=== PATIENT | female | born 1940 | race Caucasian/White ===

== ENCOUNTER 2018-11-09 12:36 | Observation (INO) ==
[2018-11-09] MEDS ORDERED: Nitroglycerin 0.4 MG TAB.SUBL SL PRN (12:43)
[2018-11-09 13:13] LABS: Basophils # 0.1 K/mcL (0.0-0.2); Basophils % 0.7 %; Eosinophils # 0.2 K/mcL (0.0-0.6); Eosinophils % 2.6 %; Hematocrit 37.9 % (35.3-44.9); Immature Granulocytes % 0.4 % (0-4); Lymphocytes # 2.1 K/mcL (0.6-4.6); Lymphocytes % 22.6 %; Mean Corpuscular HGB Conc 31.7 g/dL (31.6-35.5); Mean Corpuscular Hemoglobin 27.8 pg (28.0-33.3); Mean Corpuscular Volume 87.9 fL (83.0-100.0); Mean Platelet Volume 12.8 fL (9.4-12.4); Monocytes # 0.7 K/mcL (0.0-1.3); Monocytes % 7.2 %; Platelet Count 184 K/mcL (140-400); Red Blood Count 4.31 M/mcL (3.82-4.97); Segmented Neutrophils % 66.5 %
[2018-11-09 13:22] LABS: INR 1.1; Prothrombin Time 12.8 Seconds (9.4-12.1)
[2018-11-09 13:25] LABS: Activated Partial Thrombo Time 27.6 Seconds (26.0-36.0)
[2018-11-09 13:28] LABS: BUN/Creatinine Ratio 29 (6-26); Blood Urea Nitrogen 21 mg/dL (8-23); Calcium 9.7 mg/dL (8.6-10.3); Carbon Dioxide 26 mEq/L (23-29); Chloride 107 mEq/L (98-107); Glucose 132 mg/dL (70-105); Osmolality,Calculated 293 (280-300); Potassium 3.9 mEq/L (3.5-5.1); Sodium 139 mEq/L (136-145); Troponin I < 0.03 ng/mL (< 0.04); eGFR For Non-African Americans > 60 (> 60)
--- NOTE | 2018-11-09 14:28 | Emergency Department Note ---
Disposition Clinical Impression: Chest pain Qualifiers: Chest pain type: unspecified Qualified Code(s): R07.9 - Chest pain, unspecified Disposition: Admitted As Inpatient Condition: Good Referrals: Cathy Peralta CNP [Primary Care Provider] - Time of Disposition: 14:28 General Adult HPI - General Chief complaint: ED Chest Pain Stated complaint: chest pain Time Seen by Provider: 11/09/18 12:37 Source: EMS Limitations: no limitations - History of Present Illness Pain Scale: 0 - Related Data Allergies Allergy/AdvReac Type Severity Reaction Status Date / Time aspirin Allergy Itching Verified 05/11/18 13:08 azithromycin Allergy Rash Verified 05/11/18 13:06 pregabalin [From Lyrica] Allergy Hallucinati Verified 05/11/18 13:08 ng Past Medical History - Past Medical History Medical history: Reports: arthritis, CHF, coronary artery disease, diabetes, hypertension, myocardial infarction Psychiatric history: Reports: no psych history - Social History Smoking Status: Never smoker Smokeless Tobacco Status: No Alcohol use: Reports: none Drug use: Reports: none Physical Exam - General Limitations: no limitations General appearance: alert, in no apparent distress Course Vital Signs Temperature 98.5 F 11/09/18 12:38 Pulse Rate 78 11/09/18 12:38 Respiratory Rate 16 11/09/18 12:38 Blood Pressure 162/74 11/09/18 12:38 O2 Sat by Pulse Oximetry 99 11/09/18 12:38 Temperature 98.5 F 11/09/18 12:38 Pulse Rate 78 11/09/18 13:00 Respiratory Rate 16 11/09/18 12:38 Blood Pressure 144/66 11/09/18 13:00 O2 Sat by Pulse Oximetry 96 11/09/18 13:00 Oxygen Delivery Oxygen Delivery Room Air Medical Decision Making - Lab Data Result diagrams: 11/09/18 12:58 11/09/18 12:58 Lab Results 11/09/18 11/09/18 11/09/18 Range/Units 12:58 12:58 12:58 WBC 9.1 (4.3-11.1) K/mcL RBC 4.31 (3.82-4.97) M/mcL Hgb 12.0 (11.5-15.4) g/dL Hct 37.9 (35.3-44.9) % MCV 87.9 (83.0-100.0) fL MCH 27.8 L (28.0-33.3) pg MCHC 31.7 (31.6-35.5) g/dL RDW 14.0 (11.5-14.5) % Plt Count 184 (140-400) K/mcL MPV 12.8 H (9.4-12.4) fL Immature Gran % 0.4 (0-4) % Seg Neutrophils % 66.5 % Lymphocytes % 22.6 % Monocytes % 7.2 % Eosinophils % 2.6 % Basophils % 0.7 % Neutrophils # 6.0 (1.6-8.9) K/mcL Lymphocytes # 2.1 (0.6-4.6) K/mcL Monocytes # 0.7 (0.0-1.3) K/mcL Eosinophils # 0.2 (0.0-0.6) K/mcL Basophils # 0.1 (0.0-0.2) K/mcL PT 12.8 H (9.4-12.1) Seconds INR 1.1 APTT 27.6 (26.0-36.0) Seconds Sodium 139 (136-145) mEq/L Potassium 3.9 (3.5-5.1) mEq/L Chloride 107 (98-107) mEq/L Carbon Dioxide 26 (23-29) mEq/L BUN 21 (8-23) mg/dL Creatinine 0.73 (0.60-1.20) mg/dL Est GFR ( Amer) > 60 (> 60) Est GFR (Non-Af Amer) > 60 (> 60) BUN/Creatinine Ratio 29 H (6-26) Glucose 132 H (70-105) mg/dL Calculated Osmolality 293 (280-300) Calcium 9.7 (8.6-10.3) mg/dL Troponin I < 0.03 (< 0.04) ng/mL Attestation Statement - Attestation Attestation: I examined this patient and my medical decision-making was reviewed with the Resident Physician. I agree with the documented findings, disposition and treatment plan as described except to the extent set forth below. 78 year old female presents to the eD with complaints of chest pain and states that she has been exertional dyspnea as wel associated with it. Patinet troponin is otherwise negative and ekg is non ischemic but due to clinical history and presenation and because nitro SL per EMS and for us has helped with her chest pain we will admit to medicine.
--- NOTE | 2018-11-09 14:44 | Emergency Department Note ---
Disposition Clinical Impression: Chest pain Qualifiers: Chest pain type: unspecified Qualified Code(s): R07.9 - Chest pain, unspecified Disposition: Admitted As Inpatient Condition: Fair Referrals: Cathy Peralta CNP [Primary Care Provider] - Forms: ED Satisfaction Letter Time of Disposition: 15:11 Chest Pain HPI - General Stated Complaint: chest pain Time Seen by Provider: 11/09/18 12:37 Source: EMS Mode of arrival: EMS Limitations: no limitations Vital Signs Reviewed: Yes Nursing Notes Reviewed: Yes - History of Present Illness HPI Narrative: 78 yo female presents to the ED via EMS for chest pain that has been going on for several days. She states the pain and shortness of breath have been slowly getting worse over the past several days. She also reports LUE pain with this chest pain. She was not doing anything when the pain started. She has a PMHx of [place] with coronary artery bypass. She received aspirin and SL nitro via EMS and now is not complaining of chest pain. She does feel nauseous. Severity scale (1-10): 0 - Related Data Allergies Allergy/AdvReac Type Severity Reaction Status Date / Time aspirin Allergy Itching Verified 05/11/18 13:08 azithromycin Allergy Rash Verified 05/11/18 13:06 pregabalin [From Lyrica] Allergy Hallucinati Verified 05/11/18 13:08 ng All systems ED: reviewed and negative except as stated. Review of Systems: As Per HPI Constitutional: Reports: weakness. Denies: fever, chills Cardiovascular: Reports: chest pain, dyspnea on exertion. Denies: palpitations Respiratory: Reports: dyspnea. Denies: cough, wheezes Gastrointestinal: Reports: nausea. Denies: abdominal pain, vomiting, diarrhea Musculoskeletal: Denies: back pain, neck pain Integumentary: Denies: rash Neurological: Denies: headache, numbness, paresthesias Chest Pain PMH - Past Medical History Medical history: Reports: arthritis, CHF, coronary artery disease, diabetes, hypertension, myocardial infarction Psychiatric history: Reports: no psych history - Social History Smoking Status: Never smoker Alcohol use: Reports: none Drug use: Reports: none Physical Exam Chronic non-healing ulcer on left foot. - General Limitations: no limitations General appearance: alert, in no apparent distress - Head Head exam: atraumatic, normocephalic - Eye Eye exam: Present: normal appearance, PERRL, EOMI - ENT ENT exam: normal exam, normal oropharynx - Neck Neck exam: Present: normal inspection - Chest Chest inspection: Present: normal inspection, symmetric chest wall rise - Respiratory Respiratory exam: Present: normal lung sounds bilaterally - Cardiovascular Cardiovascular exam: Present: regular rate, normal rhythm - Abdominal Exam Abdominal exam: Present: soft, Non-Tender. Absent: distention, guarding, rebound, rigidity - Neurological Exam Neurological exam: Present: alert, oriented X3 - Psychiatric Psychiatric exam: Present: normal affect, normal mood - Skin Skin exam: Present: warm, dry, intact Course Vital Signs Temperature 98.5 F 11/09/18 12:38 Pulse Rate 78 11/09/18 12:38 Respiratory Rate 16 11/09/18 12:38 Blood Pressure 162/74 11/09/18 12:38 O2 Sat by Pulse Oximetry 99 11/09/18 12:38 Temperature 98.5 F 11/09/18 12:38 Pulse Rate 78 11/09/18 13:00 Respiratory Rate 16 11/09/18 12:38 Blood Pressure 144/66 11/09/18 13:00 O2 Sat by Pulse Oximetry 96 11/09/18 13:00 Oxygen Delivery Oxygen Delivery Room Air Chest Pain - MDM Narrative Medical decision making narrative: This patient has a cardiac history with several days of chest pain which was relieved by nitroglycerine. We will do a chest pain workup. 1510 - Lab work and imaging are unremarkable. The patient is still chest pain free. We will admit to medicine for further chest pain rule out. - Medical Records Medical records reviewed: Yes I reviewed the patient's medical records. - Lab Data Lab results reviewed: Yes I reviewed the patient's lab results. Result diagrams: 11/09/18 12:58 11/09/18 12:58 Lab Results 11/09/18 11/09/18 11/09/18 Range/Units 12:58 12:58 12:58 WBC 9.1 (4.3-11.1) K/mcL RBC 4.31 (3.82-4.97) M/mcL Hgb 12.0 (11.5-15.4) g/dL Hct 37.9 (35.3-44.9) % MCV 87.9 (83.0-100.0) fL MCH 27.8 L (28.0-33.3) pg MCHC 31.7 (31.6-35.5) g/dL RDW 14.0 (11.5-14.5) % Plt Count 184 (140-400) K/mcL MPV 12.8 H (9.4-12.4) fL Immature Gran % 0.4 (0-4) % Seg Neutrophils % 66.5 % Lymphocytes % 22.6 % Monocytes % 7.2 % Eosinophils % 2.6 % Basophils % 0.7 % Neutrophils # 6.0 (1.6-8.9) K/mcL Lymphocytes # 2.1 (0.6-4.6) K/mcL Monocytes # 0.7 (0.0-1.3) K/mcL Eosinophils # 0.2 (0.0-0.6) K/mcL Basophils # 0.1 (0.0-0.2) K/mcL PT 12.8 H (9.4-12.1) Seconds INR 1.1 APTT 27.6 (26.0-36.0) Seconds Sodium 139 (136-145) mEq/L Potassium 3.9 (3.5-5.1) mEq/L Chloride 107 (98-107) mEq/L Carbon Dioxide 26 (23-29) mEq/L BUN 21 (8-23) mg/dL Creatinine 0.73 (0.60-1.20) mg/dL Est GFR ( Amer) > 60 (> 60) Est GFR (Non-Af Amer) > 60 (> 60) BUN/Creatinine Ratio 29 H (6-26) Glucose 132 H (70-105) mg/dL Calculated Osmolality 293 (280-300) Calcium 9.7 (8.6-10.3) mg/dL Troponin I < 0.03 (< 0.04) ng/mL - Radiology Data Radiology results reviewed: Yes I reviewed the patient's radiology results. - EKG Data EKG attestation: Yes I reviewed and interpreted this EKG. EKG results narrative: EKG obtained at 1248 on 11/09/2018 HR 80 bpm, pr interval 149, QRS duration 91, QT 389, QTc 449 Sinus rhythm without any ST segment elevations or depressions. No significant arryhtmias or signs of ischemia. Unchanged when compared to previous EKG dated 05/11/2018. Heart Score - Score History: Moderately Suspicious EKG: Normal Age: Greater than 65 Risk Factors: Equal/Greater than 3 risk factor or history of atherosclerotic disease Troponin: Less than normal limit HEART Score Total: 5
[2018-11-09 16:08] LABS: Bilirubin,Urine Negative (Negative); Blood,Urine Small (Negative); Clarity,Urine Cloudy (Clear); Color,Urine Yellow (Yellow); Glucose,Urine (UA) Normal (Normal); Ketones,Urine Negative (Negative); Leukocyte Esterase,Urine Large (Negative); Nitrite,Urine Positive (Negative); Protein,Urine Trace mg/dL (Neg-Trace); Urobilinogen,Urine Normal (Normal)
[2018-11-09] MEDS ORDERED: Naloxone 0.4 MG/ML INJ IVP PRN (16:09)
[2018-11-09 16:13] LABS: Bacteria,Urine Many per hpf (None-Few); RBC,Urine 0-3 per hpf (0-3); Squamous Epithelial Cell,Urine Many per lpf (None-Few); WBC,Urine 50-100 per hpf (0-3)
[2018-11-09] MEDS ORDERED: Ondansetron 4 MG/2 ML VIAL IVP PRN (16:15)
--- NOTE | 2018-11-09 16:22 | Internal Med History&Physical ---
Date of Encounter: 11/09/18 Time of Encounter: 16:22 Internal Medicine - H&P: HPI Chief complaint: Chest pain Admitted From: Emergency Dept Plans for Post Hospital Care: Home History of present illness: Ms. Alfaro is a 78 year old female past medical history of hypertension CAD- with CABG GERD diabetes diet controlled-patient presented after experiencing midsternal chest pressure described as heartburn radiating to her back and relieved with antacids with associated symptoms of shortness of breath and nausea. Pain is approximately 8 out of 10 when it occurs. It is worse with exertion it was relieved after 3 nitroglycerin. ER workup shows negative troponin lab work unremarkable chest x-ray with no acute process EKG sinus rhythm with no ST-T wave abnormalities. She has been admitted for further workup and evaluation of ACS. Currently patient denies any chest pain or shortness of breath. She is hemodynamically stable at this time. Past Med Surg Social Fam HX - Past Medical History Medical history: arthritis, CHF, coronary artery disease, diabetes, hypertension, myocardial infarction Additional medical history: Neuropathy Psychiatric history: no psych history - Past Surgical History Additional surgical history: Eye Surgery. D&C x 2 - Social History Smoking Status: Never smoker Smokeless Tobacco Status: No Alcohol use: none Drug use: none - Family History Mother Living Status: Age at : 86 Cause of : CHF Hx Family Cardiac Disorders: Yes (CHF, HTN) Hx Family Respiratory Disorders: No Hx Family Cancer: No Hx Family GI Disorders: No Hx Family Genitourinary Disorders: No Hx Family Endocrine Disorder: No Hx Family Musculoskeletal Disorders: No Hx Family Neuromuscular Disorders: No Hx Family Neurologic Disorders: No Hx Family HEENT Disorders: No Hx Family Autoimmune Disorders: No Hx Family Reproductive Disorders: No Hx Family Psychosocial Disorders: No Father Living Status: Age at : 63 Cause of : [place] Hx Family Cardiac Disorders: No Hx Family Respiratory Disorders: No Hx Family Cancer: No Hx Family GI Disorders: No Hx Family Genitourinary Disorders: No Hx Family Endocrine Disorder: No Hx Family Musculoskeletal Disorders: No Hx Family Neuromuscular Disorders: No Hx Family Neurologic Disorders: No Hx Family HEENT Disorders: No Hx Family Autoimmune Disorders: No Hx Family Reproductive Disorders: No Hx Family Psychosocial Disorders: No Internal Medicine - H&P: Meds Allergy/AdvReac Type Severity Reaction Status Date / Time aspirin Allergy Itching Verified 05/11/18 13:08 azithromycin Allergy Rash Verified 05/11/18 13:06 pregabalin [From Lyrica] Allergy Hallucinati Verified 05/11/18 13:08 ng All Systems PM: A 10-system review of systems was performed and is negative for pertinent findings except as documented above in the HPI. - Constitutional Constitutional: no chills, no fever(s), no night sweats - EENT Eyes: no change in vision, no discharge, no pain, no photophobia Ears: no ear discharge, no ear pain, no tinnitus Nose, mouth and throat: no dysphagia, no nasal discharge, no neck pain, no sore throat - Cardiovascular Cardiovascular ROS IM: chest pain, edema, no diaphoresis, no dyspnea, no lightheadedness, no palpitations, no syncope - Respiratory Respiratory: no cough, no dyspnea, no wheezing, no excessive phlegm production - Gastrointestinal Gastrointestinal: no abdominal pain, no diarrhea, no hematemesis, no hematochezia, no melena, no nausea, no vomiting - Genitourinary Genitourinary: no change in urinary stream, no dysuria, no flank pain, no kendal turia - Musculoskeletal Musculoskeletal ROS IM: no numbness, no tingling - Integumentary Integumentary IM: no rash, no unusual bruising - Neurological Neurological ROS: no confusion, no convulsions, no focal weakness, no numbness, no tingling, no tremor(s) - Hematologic/Lymphatic Hematologic/Lymphatic: no easy bruising - Constitutional Vitals: Temp Pulse Resp BP Pulse Ox 98.5 F 78 16 122/58 96 11/09/18 12:38 11/09/18 13:00 11/09/18 15:44 11/09/18 15:44 11/09/18 13:00 General appearance: Present: A&O X 3 Exam: . - Head Head exam: Present: atraumatic, normocephalic - Eye Eye exam: Present: PERRL, conjuntiva pink, sclera anicteric Pupils: Present: PERRL - Neck Neck exam general surgery: Present: supple, trachea midline. Absent: lymphadenopathy - Respiratory Respiratory exam: Present: CTAB. Absent: accessory muscle use, rales, rhonchi, wheezes - Cardiovascular Cardiovascular exam: Present: RRR, +S1, +S2. Absent: diastolic murmur, gallop, rubs, systolic murmur - GI/Abdominal GI/Abdominal exam: Present: normal bowel sounds, soft, no peritoneal signs. A bsent: distended, tenderness - Extremities Exam Extremities exam: Present: warm, radial pulses palpable and symmetrical. Absent: calf tenderness, cyanotic, pedal edema - Neurological Exam Neurological exam: Present: CN II-XII intact, oriented X3, no focal deficits. Absent: pronater drift, facial droop, speech deficit - Skin Skin exam: Present: dry, intact Internal Med - H&P Results - Labs CBC & Chem 7: 11/09/18 12:58 11/09/18 12:58 Labs: Short CBC 11/09/18 Range/Units 12:58 WBC 9.1 (4.3-11.1) K/mcL Hgb 12.0 (11.5-15.4) g/dL Hct 37.9 (35.3-44.9) % Plt Count 184 (140-400) K/mcL Neutrophils # 6.0 (1.6-8.9) K/mcL BMP 11/09/18 12:58 Sodium 139 Potassium 3.9 Chloride 107 Carbon Dioxide 26 BUN 21 Creatinine 0.73 Glucose 132 H Calcium 9.7 Cardiac Enzymes 11/09/18 Range/Units 12:58 Troponin I < 0.03 (< 0.04) ng/mL Urine 11/09/18 Range/Units 15:45 Urine Color Yellow (Yellow) Urine Clarity Cloudy A (Clear) Urine pH 6.0 (5.0-8.0) pH Units Ur Specific Amery 1.020 (1.010-1.025) Urine Protein Trace (Neg-Trace) mg/dL Urine Glucose (UA) Normal (Normal) mg/dL - Impressions ITS Impressions Chest X-Ray 11/09/18 12:42 IMPRESSION: Stable exam. No new acute cardiopulmonary findings. D/ / Leonor Aguirre MD / Leonor Aguirre MD Interpreting Provider: Leonor Aguirre MD - Assessment and plan (1) Chest pain Current Visit: Yes Status: Acute Assessment and plan: Presented after 3 days of midsternal chest pain that radiated to her back describing as almost heartburn. No relief with antacids she did have relief after 3 nitroglycerin. Does have a history of CAD with CABG. Last echo obtained in July 2018 Impressions: LVEF 55%. Mild concentric left ventricular hypertrophy. Mild left ventricular diastolic dysfunction. Normal right ventricular structure and function. Bi-atrial enlargement. Mild mitral regurgitation. Mild tricuspid regurgitation. Initial troponin was negative we will continue to trend troponins He is cardiac monitoring Nitroglycerin as needed for chest pain Continue with aspirin and statin and beta roman Nothing by mouth after midnight A limited cardiac echo Stress test in a.m. Consult cardiology as needed Qualifiers: Chest pain type: unspecified Qualified Code(s): R07.9 - Chest pain, unspecified (2) Diabetes Current Visit: No Status: Chronic Assessment and plan: 3 of diet-controlled diabetes we will monitor Accu-Cheks before meals at bedtime with sliding scale insulin and diabetic diet Qualifiers: Diabetes mellitus type: type 2 Diabetes mellitus intermediate insulin use: without intermediate use Diabetes mellitus complication status: without complication Qualified Code(s): E11.9 - Type 2 diabetes mellitus without complications (3) HTN (hypertension) Current Visit: Yes Status: Acute Assessment and plan: We will continue with home medications once verified Qualifiers: Hypertension type: essential hypertension Qualified Code(s): I10 - Essential (primary) hypertension (4) CAD (coronary artery disease) Current Visit: Yes Status: Acute Assessment and plan: History of coronary disease status post CABG with AL to LAD and vein graft to obtuse marginal and 2009 Continuous cardiac monitoring Nitroglycerin as needed for chest pain Continue with aspirin and statin and beta roman once verified Qualifiers: Coronary Disease-Associated Artery/Lesion type: [place] artery [place] vs. transplanted heart: [place] heart Associated angina: without angina Qualified Code(s): I25.10 - Atherosclerotic heart disease of [place] coronary artery without angina pectoris - Time Spent With Patient Total time spent is greater than 50% in coordination of care (as documented) at patient's floor/unit and/or counseling patient:
[2018-11-09 16:25] LABS: Hyaline Casts,Urine Few per lpf (None-Few)
[2018-11-09] MEDS: Acetaminophen 325 MG TABLET PO PRN (21:45)
[2018-11-10 01:27] LABS: Basophils # 0.1 K/mcL (0.0-0.2); Basophils % 0.6 %; Eosinophils # 0.2 K/mcL (0.0-0.6); Eosinophils % 2.6 %; Hematocrit 41.7 % (35.3-44.9); Hemoglobin 12.8 g/dL (11.5-15.4); Immature Granulocytes % 0.2 % (0-4); Lymphocytes # 2.7 K/mcL (0.6-4.6); Lymphocytes % 32.3 %; Mean Corpuscular HGB Conc 30.7 g/dL (31.6-35.5); Mean Corpuscular Hemoglobin 27.5 pg (28.0-33.3); Mean Corpuscular Volume 89.7 fL (83.0-100.0); Mean Platelet Volume 13.2 fL (9.4-12.4); Monocytes # 0.8 K/mcL (0.0-1.3); Monocytes % 9.5 %; Neutrophils # 4.6 K/mcL (1.6-8.9); Platelet Count 126 K/mcL (140-400); Red Blood Count 4.65 M/mcL (3.82-4.97); Red Cell Distribution Width 13.9 % (11.5-14.5); Segmented Neutrophils % 54.8 %
[2018-11-10 01:49] LABS: BUN/Creatinine Ratio 26 (6-26); Blood Urea Nitrogen 19 mg/dL (8-23); Calcium 9.7 mg/dL (8.6-10.3); Carbon Dioxide 25 mEq/L (23-29); Chloride 107 mEq/L (98-107); Cholesterol 196 mg/dL (< 200); Glucose 107 mg/dL (70-105); HDL Cholesterol 49 mg/dL (40-59); LDL Cholesterol,Calculated 113 mg/dL (0-99); Magnesium 2.1 mg/dL (1.6-2.6); Osmolality,Calculated 291 (280-300); Potassium 3.8 mEq/L (3.5-5.1); Sodium 139 mEq/L (136-145); Triglycerides 172 mg/dL (< 150); eGFR For Non-African Americans > 60 (> 60)
[2018-11-10 02:23] LABS: Platelet Estimate Decreased (Normal)
[2018-11-10] MEDS ORDERED: Regadenoson 0.4 MG/5 ML SYRINGE IVP ONE (06:08)
[2018-11-10] MEDS: Aspirin 81 MG TAB.CHEW PO SCH (10:20)
[2018-11-10] MEDS: Acetaminophen 325 MG TABLET PO PRN ×2 (10:20→22:45)
--- NOTE | 2018-11-10 14:42 | Cardiology Consult Note ---
Date of Encounter: 11/10/18 Time of Encounter: 14:30 Assessment and Plan (1) Chest pain Current Visit: Yes Status: Acute Presented to the ED for chest pain. Noted to have no acute changes on the EKG, there is LVH noted which is unchanged from previous EKG in May. Her troponin was negative. The pain resolved with nitroglycerin. Her stress test today shows mild stress perfusion defect involding distal anteroseptal mild ischemia and no perfusion evidence for defect noted. Her EF was noted to be above 70%. She does not want to have a left heart catherization today. She would like to continue medical management. -Continue ASA, metoprolol -Continue atorvastatin at home -Added Imdur 30 mg, if her blood pressure is elevated can add amlodapine to f urther reduce it -Follow outpatient with cardiology Qualifiers: Chest pain type: unspecified Qualified Code(s): R07.9 - Chest pain, unspecified (2) CAD (coronary artery disease) Current Visit: Yes Status: Chronic History of CAD and had CABG in 2009. Is not on statin at home. Continue ASA, statin and BB. Qualifiers: Coronary Disease-Associated Artery/Lesion type: [place] artery [place] vs. transplanted heart: [place] heart Associated angina: without angina Qualified Code(s): I25.10 - Atherosclerotic heart disease of [place] coronary artery without angina pectoris Discussion w patient/family: The assessment and plan as outlined above was discussed with the patient and/or family members who expressed understanding and agreement. All questions were answered. Thank you for involving us in the care of your patient. Please call wi th any questions. History of Present Illness Consult date: 11/10/18 Requesting physician: Yamila Slater Consult reason: Chest pain Chief complaint: chest pain History of present illness: Ms. Alfaro is a 78 year old female with past medical history of HTN, CAD, CABG, GERD and diabetes who presented to misternal chest pressure and pain radiating to her back. It was associated with shortness of breath and nausea. Antacid relieved her pain prior to presenting to the ED. The pain worsened with exertion and in the ED the pain resolved after sublingual nitroglycerin. She presented to the ED and had serial negative troponins with no EKG changes. She is not very active and uses a wheelchair for mobility due to knee meniscal damage. Her stress test today shows mild perfusion defect involving distal anteroseptum. She is pain free and has no shortness of breath at this time. She denies fever, chills, nausea or emesis. Past Med Surg Social Fam HX - Past Medical History Medical history: arthritis, CHF, coronary artery disease, diabetes, hypertension, myocardial infarction Additional medical history: Neuropathy Psychiatric history: no psych history - Past Surgical History Surgical History: coronary bypass (CABG) Additional surgical history: Eye Surgery. D&C x 2 - Social History Smoking Status: Never smoker Smokeless Tobacco Status: No Alcohol use: none Drug use: none - Family History Mother Living Status: Age at : 86 Cause of : CHF Hx Family Cardiac Disorders: Yes (CHF, HTN) Hx Family Respiratory Disorders: No Hx Family Cancer: No Hx Family GI Disorders: No Hx Family Genitourinary Disorders: No Hx Family Endocrine Disorder: No Hx Family Musculoskeletal Disorders: No Hx Family Neuromuscular Disorders: No Hx Family Neurologic Disorders: No Hx Family HEENT Disorders: No Hx Family Autoimmune Disorders: No Hx Family Reproductive Disorders: No Hx Family Psychosocial Disorders: No Father Living Status: Age at : 63 Cause of : [place] Hx Family Cardiac Disorders: No Hx Family Respiratory Disorders: No Hx Family Cancer: No Hx Family GI Disorders: No Hx Family Genitourinary Disorders: No Hx Family Endocrine Disorder: No Hx Family Musculoskeletal Disorders: No Hx Family Neuromuscular Disorders: No Hx Family Neurologic Disorders: No Hx Family HEENT Disorders: No Hx Family Autoimmune Disorders: No Hx Family Reproductive Disorders: No Hx Family Psychosocial Disorders: No Medications and Allergies Aspirin [Adult Aspirin] 81 mg PO DAILY 11/09/18 [History] Ibuprofen [Motrin Ib] 800 mg PO BID PRN 11/09/18 [History] Metoprolol Succinate [Toprol Xl] 50 mg PO DAILY 11/09/18 [History] Allergy/AdvReac Type Severity Reaction Status Date / Time aspirin Allergy Itching Verified 05/11/18 13:08 azithromycin Allergy Rash Verified 05/11/18 13:06 pregabalin [From Lyrica] Allergy Hallucinati Verified 05/11/18 13:08 ng All Systems Review: The remainder of the systems were reviewed and are negative - Constitutional Constitutional: no chills, no fever(s), no weakness - Cardiovascular Cardiovascular: no chest pain at rest, no chest pain with exertion, no dyspnea at rest, no dyspnea on exertion, no orthopnea, no palpitations - Respiratory Respiratory: no cough, no dyspnea - Gastrointestinal Gastrointestinal: no abdominal pain, no constipation, no diarrhea - Musculoskeletal Musculoskeletal: no back pain, no muscle weakness - Integumentary Integumentary: no erythema, no rash - Neurological Neurological: no focal weakness, no numbness - Psychiatric Psychiatric: no anxiety, no depression Physical Examination Vital Signs, Last 4 Hours Temp Pulse Resp BP Pulse Ox 11/10/18 11:32 98.5 F 81 15 136/53 98 General: Conversant, No Apparent Distress HEENT: Atraumatic, Normocephaly, Mucus Membranes Moist Neck: No JVD, Normal carotid pulses Cardiac: Reg Rate and Rhythm, Normal S1 and S2, No Murmur Lungs: Normal Breath Sounds, No Wheeze, Rales, Rhonchi Neuro: Alert and responsive, No focal deficits noted Abdomen: Soft, Non-Tender Skin: No rashes noted on visualized skin Musculoskeletal: No Chest Wall Tenderness Extremities: No Cyanosis, No Edema, Normal Pulses Results 11/10/18 00:54 11/10/18 00:54 Lab Results 11/09/18 11/10/18 11/10/18 19:29 00:54 00:54 WBC 8.4 Hgb 12.8 Hct 41.7 Plt Count 126 L Sodium Potassium Chloride Carbon Dioxide BUN Creatinine Glucose Calcium Magnesium Troponin I < 0.03 < 0.03 11/10/18 00:54 WBC Hgb Hct Plt Count Sodium 139 Potassium 3.8 Chloride 107 Carbon Dioxide 25 BUN 19 Creatinine 0.73 Glucose 107 H Calcium 9.7 Magnesium 2.1 Troponin I Consult Discharge Plan - Plan Referrals: Cathy Peralta CNP [Primary Care Provider] - 11/14/18 1:00 pm
--- NOTE | 2018-11-10 14:46 | Internal Med Progress Note ---
Hospitalist Progress Note - Encounter Date of Encounter: 11/10/18 Time of Encounter: 14:46 - Subjective Interval History: Ratio was seen and examined at bedside currently denies any chest pain she did undergo a nuclear stress test this morning results did reveal a small sized mild intensity stress perfusion defect involving the distal anterior septum rep resenting mild ischemia. I did discuss results with the patient and her daughter who is at bedside. Explained that cardiology has been consulted and will see the patient-discussed the patient may undergo LHC so at this time we will continue nothing by mouth state. Patient verbalized understanding - Exam Vitals: Temp Pulse Resp BP Pulse Ox 98.5 F 81 15 136/53 98 11/10/18 11:32 11/10/18 11:32 11/10/18 11:32 11/10/18 11:32 11/10/18 11:32 Exam: GENERAL APPEARANCE: The patient is alert, oriented and in no acute distress. HEENT: Head is normocephalic. The sinuses are nontender. Pupils are equal and reactive. The nares are patent. Oropharynx clear without lesions. NECK: Supple without lymphadenopathy. HEART: Regular rate and rhythm. LUNGS: No crackles or wheezes are heard. ABDOMEN: Soft, nontender, nondistended with good bowel sounds heard. EXTREMITIES: No pedal edema noted NEUROLOGICAL: Gross nonfocal. SKIN: Warm and dry without any rash. - Assessment and Plan (1) Chest pain Current Visit: Yes Status: Acute Assessment and Plan: Presented after 3 days of midsternal chest pain that radiated to her back describing as almost heartburn. No relief with antacids she did have relief after 3 nitroglycerin. Does have a history of CAD with CABG. Last echo obtained in July 2018 Impressions: LVEF 55%. Mild concentric left ventricular hypertrophy. Mild left ventricular diastolic dysfunction. Normal right ventricular structure and function. Bi-atrial enlargement. Mild mitral regurgitation. Mild tricuspid regurgitation. Initial troponin was negative we will continue to trend troponins He is cardiac monitoring Nitroglycerin as needed for chest pain Continue with aspirin and statin and beta roman Nothing by mouth after midnight A limited cardiac echo Stress test in a.m. Consult cardiology as needed 11/10/2018 Patient did undergo a Regadenoson Nuclear Stress-which did reveal a small sized mild intensity stress perfusion defect involving the distal anterior septum representing mild ischemia. Cardiology was consulted for possible LHC Continues with nothing by mouth at this time-denies any chest pain (2) Diabetes Current Visit: No Status: Chronic Assessment and Plan: 3 of diet-controlled diabetes we will monitor Accu-Cheks before meals at bedtime with sliding scale insulin and diabetic diet 11/10 Continue with Accu-Cheks before meals and at bedtime with sliding scale insulin (3) HTN (hypertension) Current Visit: Yes Status: Acute Assessment and Plan: Really controlled continue with home medications (4) CAD (coronary artery disease) Current Visit: Yes Status: Acute Assessment and Plan: History of coronary disease status post CABG with AL to LAD and vein graft to obtuse marginal and 2009 Continuous cardiac monitoring Nitroglycerin as needed for chest pain Continue with aspirin and statin and beta roman once verified 11/10/2018 Continue with aspirin and statin beta roman much less rested for chest pain Reality has been consulted for abnormal stress test - Time Spent with Patient Total time spent is greater than 50% in coordination of care (as documented) at patient's floor/unit and/or counseling patient: Internal Medicine: Result - Labs CBC & Chem 7: 11/10/18 00:54 11/10/18 00:54 Labs: Short CBC 11/10/18 Range/Units 00:54 WBC 8.4 (4.3-11.1) K/mcL Hgb 12.8 (11.5-15.4) g/dL Hct 41.7 (35.3-44.9) % Plt Count 126 L (140-400) K/mcL Neutrophils # 4.6 (1.6-8.9) K/mcL BMP 11/10/18 00:54 Sodium 139 Potassium 3.8 Chloride 107 Carbon Dioxide 25 BUN 19 Creatinine 0.73 Glucose 107 H Calcium 9.7 Cardiac Enzymes 11/09/18 11/10/18 Range/Units 19:29 00:54 Troponin I < 0.03 < 0.03 (< 0.04) ng/mL Urine 11/09/18 Range/Units 15:45 Urine Color Yellow (Yellow) Urine Clarity Cloudy A (Clear) Urine pH 6.0 (5.0-8.0) pH Units Ur Specific [place] 1.020 (1.010-1.025) Urine Protein Trace (Neg-Trace) mg/dL Urine Glucose (UA) Normal (Normal) mg/dL - ABG Interpretation ABG results: PT/INR, D-dimer PT 12.8 Seconds (9.4-12.1) H 11/09/18 12:58 - Impressions Impressions Echocardiogram Limited Views 11/09/18 17:55 Impressions: LVEF 60%. Normal LV chamber size and function. Normal right ventricular structure and function. Left Ventricular Wall Motion: Rest Echo Findings All wall segments showed normal motion. Findings: Study Quality * Technically adequate exam. ECG Findings * Normal sinus rhythm. Left Ventricle * LVEF 60%. * Normal LV chamber size and function. Right Ventricle * Normal right ventricular structure and function. Pericardium * There is no pericardial effusion present. Aorta * Not well visualized. Consult Discharge Plan - Plan Referrals: Cathy Peralta, TORSTEN [Primary Care Provider] - 11/14/18 1:00 pm (1) Chest pain Qualifiers: Qualified Code(s): R07.9 - Chest pain, unspecified (2) Diabetes Qualifiers: Qualified Code(s): E11.9 - Type 2 diabetes mellitus without complications (3) HTN (hypertension) Qualifiers: Qualified Code(s): I10 - Essential (primary) hypertension (4) CAD (coronary artery disease) Qualifiers: Qualified Code(s): I25.10 - Atherosclerotic heart disease of [place] coronary artery without angina pectoris
[2018-11-10] MEDS ORDERED: ISOVUE-370 200 ML INFUS..BTL ONE ×2 (15:28→16:17)
[2018-11-10] MEDS ORDERED: Heparin 1,000 UNITS/500 mL 500 ML ONE (15:28)
[2018-11-10] MEDS ORDERED: 0.9 % Sodium Chloride 1,000 ML ONE ×2 (15:28→15:34)
[2018-11-10] MEDS ORDERED: *HR* Heparin 10,000 UNIT/10 ML VIAL ONE (15:28)
[2018-11-10] MEDS ORDERED: Nitroglycerin 1,000 MCG/10 ML VIAL IV ONE ×2 (15:28→15:32)
[2018-11-10] MEDS: Isosorbide MONOnitrate (24 HR) 30 MG TAB.ER.24H PO SCH (15:33)
[2018-11-10] MEDS ORDERED: *HR* FentaNYL (PF) 100 MCG/2 ML VIAL ONE (15:47)
[2018-11-10] MEDS ORDERED: *HR* Midazolam HCl 2 MG/2 ML VIAL ONE (15:47)
--- NOTE | 2018-11-10 15:51 | Pre-Sedation Evaluation ---
Pre-sedation evaluation - Pre-sedation checklist Date of procedure: 11/10/18 Procedure: LHC Recent Vitals: Last Vital Signs Temp 97.8 F 11/10/18 15:08 Pulse 79 11/10/18 15:08 Resp 14 11/10/18 15:08 BP 153/74 11/10/18 15:08 Pulse Ox 99 11/10/18 15:08 ASA Classification *see protocol: CLASS II-Mild systemic disease Cardiac Registry (Cardio Only) - Functional Capacity Functional Capacity: >=4 METS with symptoms - Clincal Frailty Scale Clinical Frailty Scale: Managing Well
[2018-11-10] MEDS ORDERED: *HR* Labetalol 100 MG/20 ML MDV ONE (16:05)
[2018-11-10] MEDS ORDERED: Tirofiban 12.5 MG/250ML 12.5 MG/250 ML BAG ONE (16:13)
[2018-11-10] MEDS ORDERED: Water for inj. (sterile) 10 ML IV ONE (16:27)
[2018-11-10] MEDS ORDERED: Tirofiban 12.5 MG/250ML 12.5 MG/250 ML BAG IVC SCH (16:30)
[2018-11-10] MEDS: Nystatin POWDER 30 GM BOTTLE TP SCH (19:46)
[2018-11-11] MEDS: Acetaminophen 325 MG TABLET PO PRN ×2 (06:42→13:17)
[2018-11-11 06:44] LABS: Troponin I 0.03 ng/mL (< 0.04)
[2018-11-11 06:46] LABS: BUN/Creatinine Ratio 30 (6-26); Blood Urea Nitrogen 17 mg/dL (8-23); eGFR For Non-African Americans > 60 (> 60)
[2018-11-11 07:28] LABS: Hematocrit 35.1 % (35.3-44.9); Hemoglobin 11.1 g/dL (11.5-15.4)
[2018-11-11] MEDS ORDERED: Metoprolol XL (24 HR) Succ 50 MG TAB.ER.24H PO SCH (09:00)
[2018-11-11] MEDS: Isosorbide MONOnitrate (24 HR) 30 MG TAB.ER.24H PO SCH (10:05)
[2018-11-11] MEDS: Aspirin 81 MG TAB.CHEW PO SCH (10:05)
[2018-11-11] MEDS: Nystatin POWDER 30 GM BOTTLE TP SCH (10:07)
--- NOTE | 2018-11-11 10:58 | Cardiology Progress Note ---
Date of Encounter: 11/11/18 Time of Encounter: 08:30 Assessment and Plan (1) Chest pain Current Visit: Yes Status: Acute Per cardiology: -Presented to the ED for chest pain. Noted to have no acute changes on the EKG, there is LVH noted which is unchanged from previous EKG in May. -Her troponin was negative. -STress test was abnormal and LHC yesterday with 100% mid LAD, AL to LAD patent, 70% proximal circumflex with DEONTE placed, 25% ISR mid RCA, SVG to OM patent. -Chest pain free. -ON asa, plavix, statin, BB, imdur. Educated on importance of dual anti-platelet therapy uninterrupted for at least one year, states understanding. -Right groin access site without ecchymosis or hematoma. Right groin site management education reviewed with patient, states understanding. -Cardiology will sign off, will arrange outpatient follow up. Qualifiers: Chest pain type: unspecified Qualified Code(s): R07.9 - Chest pain, unspecified (2) CAD (coronary artery disease) Current Visit: Yes Status: Chronic Per cardiology: -See chest pain as above. Qualifiers: Coronary Disease-Associated Artery/Lesion type: [place] artery [place] vs. transplanted heart: [place] heart Associated angina: without angina Qualified Code(s): I25.10 - Atherosclerotic heart disease of [place] coronary artery without angina pectoris Discussion w patient/family: The assessment and plan as outlined above was discussed with the patient who expressed understanding and agreement. All questions were answered. Thank you for involving us in the care of your patient. Please call with any questions. Discussed and reviewed with . Subjective Principal diagnosis: chest pain Interval history: Patient is s/p [facility] yesterday with DEONTE. Denies chest pain. Denies issues walking or using right leg. Objective Vital Signs, Last 4 Hours Temp Pulse Resp BP Pulse Ox 11/11/18 07:41 97.8 F 80 16 128/67 98 General: Conversant, No Apparent Distress HEENT: Atraumatic, Normocephaly, Mucus Membranes Moist Neck: No JVD, Normal carotid pulses Cardiac: Reg Rate and Rhythm, Normal S1 and S2, No Murmur Lungs: Normal Breath Sounds, No Wheeze, Rales, Rhonchi Neuro: Alert and responsive, No focal deficits noted Abdomen: Soft, Non-Tender Skin: No rashes noted on visualized skin, Other (Right groin access site without hematoma or ecchymosis. ) Musculoskeletal: No Chest Wall Tenderness Extremities: No Clubbing, No Cyanosis, No Edema, Normal Pulses Results 11/11/18 06:53 11/11/18 05:10 Lab Results Active Medications Acetaminophen (Tylenol) 650 mg PO Q6HR PRN PRN Reason: Mild Pain/Fever Stop: 05/11/19 16:10 Last Admin: 11/11/18 06:42 Dose: 650 mg Aspirin (Aspirin) 81 mg PO DAILY [facility] Stop: 05/12/19 09:01 Last Admin: 11/11/18 10:05 Dose: 81 mg Atorvastatin Calcium (Lipitor) 40 mg PO HS [facility] Stop: 05/11/19 21:01 Last Admin: 11/10/18 19:44 Dose: Not Given Clopidogrel Bisulfate (Plavix) 75 mg PO DAILY [facility] Stop: 05/13/19 09:01 Last Admin: 11/11/18 10:05 Dose: 75 mg Isosorbide Mononitrate (Imdur) 30 mg PO DAILY [facility] Stop: 05/12/19 15:01 Last Admin: 11/11/18 10:05 Dose: 30 mg Metoprolol Succinate (Toprol Xl) 50 mg PO DAILY [facility] Stop: 05/13/19 09:01 Last Admin: 11/11/18 10:05 Dose: 50 mg Naloxone HCl (Narcan) 0.4 mg IVP Q2MIN PRN PRN Reason: SEE COMMENTS Stop: 05/11/19 16:10 Nitroglycerin (Nitroglycerin) 0.4 mg SL Q5MIN PRN PRN Reason: Chest Pain Stop: 05/11/19 12:44 Last Admin: 11/09/18 12:59 Dose: 0.4 mg Nystatin (Nystop) 1 appl TP BID [facility] Stop: 05/12/19 21:01 Last Admin: 11/11/18 10:07 Dose: 1 appl Ondansetron HCl (Zofran) 4 mg IVP Q8HR PRN PRN Reason: Nausea And Vomiting Stop: 05/11/19 16:16 Laboratory Tests 11/11/18 05:10 Creatinine 0.57 L - Imaging and Cardiology Chest Xray: report reviewed Stress Test: report reviewed Echo: report reviewed Cardiac cath: report reviewed - EKG Interpretation EKG results cardiology: other (Telemetry reviewed with average HR previous 12 hours noted to be 79, SR. PVCs and PACs noted.) Consult Discharge Plan - Plan Additional Instructions: A Bedside Commode has been ordered through [facility] in [place]. The out of pocket cost is $17.14. When you get home, call [facility] #[phone] to have them deliver this to your home. Referrals: Cathy Peralta CNP [Primary Care Provider] - 11/14/18 1:00 pm
[2018-11-11 11:14] VITALS: BP 136/66
--- NOTE | 2018-11-11 12:56 | Discharge Summary ---
- NOTES TO OUTPATIENT PROVIDER Notes to Outpatient Provider: Presented with chest pain underwent stress test which was abnormal seen by cardiology underwent LHC DEONTE place to proximal circumflex continue with aspirin and Plavix and beta roman and Imdur follow-up with cardiology as outpatient. Patient would like to set up home health as outpatient Orders not resulted at time of discharge: Pending orders 11/09/18 17:55 NM derrick perf SPECT multi [NM] Routine 11/10/18 07:00 ECG 12 lead ECG [ECG] Routine 11/10/18 15:19 CL Cardiac Catheterization [CL] Routine 11/10/18 16:29 ECG 12 lead ECG [ECG] Stat 11/11/18 06:00 ECG 12 lead ECG [ECG] AM 0600 Date of Encounter: 11/11/18 Time of Encounter: 12:54 - Discharge Diagnosis (1) Chest pain Priority: Primary Status: Acute Qualifiers: Chest pain type: unspecified Qualified Code(s): R07.9 - Chest pain, unspecified (2) Diabetes Priority: Secondary Status: Chronic Qualifiers: Diabetes mellitus type: type 2 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 transplanted heart: [place] heart Associated angina: without angina Qualified Code(s): I25.10 - Atherosclerotic heart disease of [place] coronary artery without angina pectoris Hospital course: Ms. Alfaro is a 78 year old female past medical history of hypertension CAD CABG GERD and diabetes presented with midsternal chest pressure and pain radiating to her back. Also with associated symptoms of shortness of breath and nausea and asses did relieve her pain returned and was resolved after something will nitroglycerin. Initial workup was negative patient underwent a nuclear cardiac stress test which was abnormal shows mild stress perfusion defect involving distal anterior septal mild ischemia and no perfusion evidence for defect noted her EF was 70%. Cardiology was consulted and patient underwent LHC with 100% mid LAD AL to LAD was patent, 70% proximal circumflex with DEONTE placed, 25% ISR mid RCA at SVG to OM patent. Patient was placed on aspirin and Plavix and beta roman and Imdur. Educated on the importance of dual antiplatelet therapy and interrupted for at least one year. Access site to right groin without ecchymosis or hematoma. She was evaluated by PT and OT during admission. Said gestating PTOT home health or patient is declining at this time would like to set up with her primary care provider as an outpatient. Currently she is chest pain-free and hemodynamically stable this time. She is ready for discharge - Time Spent with Patient Total time spent providing and/or coordinating discharge services: - Discharge Medications Prescriptions: Nitroglycerin 0.4 mg SL Q5MIN PRN #30 tab.subl PRN Reason: Chest Pain Atorvastatin [Lipitor] 40 mg PO HS #30 tablet Clopidogrel [Plavix] 75 mg PO DAILY #30 tablet Isosorbide MONOnitrate (24 HR) [Imdur] 30 mg PO DAILY #30 tab.er.24h Home Medications: Aspirin [Adult Aspirin] 81 mg PO DAILY 11/09/18 [History] Ibuprofen [Motrin Ib] 800 mg PO BID PRN 11/09/18 [History] Metoprolol Succinate [Toprol Xl] 50 mg PO DAILY 11/09/18 [History] Atorvastatin [Lipitor] 40 mg PO HS #30 tablet 11/11/18 [Rx] Clopidogrel [Plavix] 75 mg PO DAILY #30 tablet 11/11/18 [Rx] Isosorbide MONOnitrate (24 HR) [Imdur] 30 mg PO DAILY #30 tab.er.24h 11/11/18 [Rx] Nitroglycerin 0.4 mg SL Q5MIN PRN #30 tab.subl 11/11/18 [Rx] Allergies/Adverse Reactions: Allergy/AdvReac Type Severity Reaction Status Date / Time aspirin Allergy Itching Verified 05/11/18 13:08 azithromycin Allergy Rash Verified 05/11/18 13:06 pregabalin [From Lyrica] Allergy Hallucinati Verified 05/11/18 13:08 ng Date of admission: 11/09/18 15:27 Primary care physician: Cathy Peralta CNP Consults: 11/09/18 16:15 Consult to Cardiac Rehabilitation-Phase1 [CONS] Routine Comment: Reason for Consult: AMI Call Completed: Yes Consult to Nurse Navigator [CONS] Routine Comment: 11/09/18 17:07 Consult to Flight Readiness Technician [CONS] Routine Reason for SW Consult: lives at home with Son. No home services. May need HH set up at discharge. 11/09/18 18:04 Consult to Occupational Therapy [CONS] Routine Comment: Evaluate, develop and implement POC Reason for Consult: patient lives at home with son. When getting patient up here she was weak, unbalacned, and her legs gave out. Patient did not fall but requires two staff members to get up. Patient has no home services. Does patient have active BEDREST order?: No Is patient medically & hemodynamically stable?: Yes Patient assessed for mobility or mobilized this visit?: Yes Consult to Physical Therapy [CONS] Routine Comment: Evaluate, develop and implement POC Reason for Consult: patient lives at home with son. When getting patient up here she was we ak, unbalacned, and her legs gave out. Patient did not fall but requires two staff members to get up. Patient has no home services. Does patient have active BEDREST order?: No Is patient medically & hemodynamically stable?: Yes Patient assessed for mobility or mobilized this visit?: Yes 11/10/18 14:33 Consult to Cardiology [CONS] Routine Comment: Consulting Provider: Cardiology Risa Reason for Consult: abnormal EKG Time Notified: 14:33 Call Completed: Yes 11/10/18 16:29 Consult to Cardiac Rehabilitation-Phase1 [CONS] Routine Comment: Reason for Consult: post op PCI Call Completed: Yes Discharging clinician: Yamila Slater Anticipated date of discharge: 11/11/18 - Constitutional Vitals: Temp Pulse Resp BP Pulse Ox 99.2 F 77 16 136/66 96 11/11/18 11:13 11/11/18 11:13 11/11/18 11:13 11/11/18 11:13 11/11/18 11:13 General appearance: Present: A&O X 3 Exam: GENERAL APPEARANCE: The patient is alert, oriented and in no acute distress. HEENT: Head is normocephalic. The sinuses are nontender. Pupils are equal and reactive. The nares are patent. Oropharynx clear without lesions. NECK: Supple without lymphadenopathy. HEART: Regular rate and rhythm. LUNGS: No crackles or wheezes are heard. ABDOMEN: Soft, nontender, nondistended with good bowel sounds heard. EXTREMITIES: No pedal edema noted NEUROLOGICAL: Gross nonfocal. SKIN: Warm and dry without any rash. - Head Head exam: Present: atraumatic, normocephalic - Eye Eye exam: Present: PERRL, conjuntiva pink, sclera anicteric Pupils: Present: PERRL - Neck Neck exam general surgery: Present: supple, trachea midline. Absent: lymphadenopathy - Respiratory Respiratory exam: Present: CTAB. Absent: accessory muscle use, rales, rhonchi, wheezes - Cardiovascular Cardiovascular exam: Present: RRR, +S1, +S2. Absent: diastolic murmur, gallop, rubs, systolic murmur - GI/Abdominal GI/Abdominal exam: Present: normal bowel sounds, soft, no peritoneal signs. Absent: distended, tenderness - Extremities Exam Extremities exam: Present: warm, radial pulses palpable and symmetrical. Absent: calf tenderness, cyanotic, pedal edema - Neurological Exam Neurological exam: Present: CN II-XII intact, oriented X3, no focal deficits. Absent: pronater drift, facial droop, speech deficit - Skin Skin exam: Present: dry, intact - Patient Status Disposition: Home, Self-Care Condition: Fair Functional capacity at discharge: uses cane/walker Overall status at discharge: patient is back to baseline - Discharge Instructions Instructions: Chest Pain (DC), Diabetes Mellitus Type 2 in Adults (DC) Follow Up With: Cathy Peralta CNP [Primary Care Provider] - 11/14/18 1:00 pm Additional Instructions: A Bedside Commode has been ordered through [facility] in [place]. The out of pocket cost is $17.14. When you get home, call [facility] #[phone] to have them deliver this to your home. - Diet and Activity Activity: increase activity as tolerated Diet: diabetic diet, low fat, low cholesterol, low salt diet
--- NOTE | 2018-11-12 05:22 | Electrocardiograph Report ---
[facility] [employer] Test Date: 2018-11-09 Pat Name: Christina Alfaro Department: [id number] Room: 3B43 Gender: F Communications Professor: : 1940 Requested By: Mirna Dejesus Order Number: [id number] Reading MD: Dian Constantino Measurements Intervals [place] Rate: 80 P: 27 VA: 149 QRS: 23 QRSD: 91 T: 138 QT: 389 QTc: 449 Interpretive Statements Sinus rhythm Probable LVH with secondary repol abnrm Electronically Signed On 11-12-2018 5:21:10 EST by Dian Constantino
--- NOTE | 2018-11-12 12:12 | Invasive Diagnostic Lab Proc ---
Name: Christina Alfaro Date of Study: 11/10/2018 Date: 1940 Ht: 61.8in Medical Record#: [id number] Age: 78 Wt: 181.88lb Gender: Female BSA: 1.83 Order #: [id number] BMI: 33.47 Physicians Procedure Physician: Hannah Lee MD Referring MD: Referring MD: Staff Name Position Time In Timothy Bridges RN Monitor 03:50 PM Rafa Langston RT (R) Scrub 03:50 PM Bernie Sevilla RN Repair Servicer 03:50 PM Indications Indication Abnormal Test - Stress Procedures Performed Procedure L HRT ART/GRFT ANGIO PRQ CARD DEONTE STENT W/ANGIO 1 VSL Pre-Procedure Checklist Informed consent is complete signed and on chart. H&P is on chart. ID band is on and ID verified with patient. Patient NPO for procedure The procedure was described for the patient and questions were answered. Blood Pressure: 153/74 ECG is on chart. Rhythm: NSR Plan of Care Patient will tolerate the procedure without complications. Adequate level of comfort will be maintained. Hemodynamics will remain stable Patient will recover from procedure without complications. Respiratory function will be maintained. Cardiac rhythm will remain stable. Patient temperature will be maintained. Patient and/or family have verbalized understanding of the procedure. Patient Education Chief Complaint/Reason for Test: Cardiac Cath Developmental Category: Geriatric (65+ years) Developmentally Appropriate for Age: Yes Learning Barriers: None Education Needs: Procedure Education Method: Verbal Information Taught: Cardiac Cath Educational Evaluation: Able to repeat information Intravenous Access Time IV Size Location DC'd Fluid/Drip Rate Units RN 18g 1 10/13" Patent On Arrival Lt Antecubital 0.9NaCl Timothy Bridges RN Allergies asa azithromycin aspirin pregabalin Vital Signs Time BP (mmHg) HR (bpm) O2 Sat. RR (bpm) LOC 03:51 PM / % 5 = Fully awake and oriented or at pre-proc level 03:51 PM / % 4 = Oriented but drowsy 04:06 PM / % 4 = Oriented but drowsy 03:56 PM 214 / 85 87 100 % 9 03:59 PM 193 / 91 84 100 % 18 04:04 PM 184 / 83 76 100 % 14 04:09 PM 150 / 80 76 99 % 21 04:15 PM 163 / 84 74 99 % 27 04:19 PM 173 / 77 73 99 % 20 04:24 PM 162 / 83 74 99 % 23 04:29 PM 178 / 84 74 99 % 16 04:21 PM / % 4 = Oriented but drowsy Procedural Medications Time Medication Dose Units Method Given By 03:51 PM Oxygen 2 L/min nasal cannula Bernie Sevilla RN 03:57 PM Versed 1 mg Intravenous Bernie Sevilla RN 03:57 PM Fentanyl 50 mcg Intravenous Bernie Sevilla RN 04:00 PM Lidocaine 2% 10 ml Subcutaneous Hannah Lee MD 04:03 PM Versed 0.5 mg Intravenous Bernie Sevilla RN 04:03 PM Fentanyl 25 mcg Intravenous Bernie Sevilla RN 04:06 PM Labetolol 10 mg Intravenous Bernie Sevilla RN 04:14 PM Heparin 3500 units Intravenous Bernie Sevilla RN 04:16 PM Aggrastat Bolus: 42 ml Intravenous Bernie Sevilla RN 04:17 PM Aggrastat 12.5mg/250ml 15 ml/hr Intravenous Bernie Sevilla RN 04:22 PM Labetolol 5 mg Intravenous Bernie Sevilla RN 04:24 PM Ancef 1 gram Intravenous Bernie Sevilla RN 04:31 PM Plavix 600 mg Orally Bernie Sevilla RN ASA Classification: CLASS II- Mild systemic disease (i.e. well-controlled diabetes, hypertension, asthma, cigarette smoking) Jono Score Preprocedure Postprocedure Activity 2- Moves 4 extremities sustained head lift Activity 2- Moves 4 extremities sustained head lift Circulation 2- SBP +/= 20 points of pre-anesthetic level Circulation 2- SBP +/= 20 points of pre-anesthetic level Consciousness 2- Awake and alert oriented x 3 Consciousness 2- Awake and alert oriented x 3 O2 Saturation 2- Able to maintain O2 satruation of 92% on room air O2 Saturation 2- Able to maintain O2 satruation of 92% on room air Respiratory 2- Able to deep breathe and cough well Respiratory 2- Able to deep breathe and cough well Total Score 10 Total Score 10 Contrast Agent: Isovue Diagnostic Contrast: 126 ml Total Contrast: 126 ml Fluoro Dose: 9224 mGy Procedure Log Time Note Enter By 03:50 PM Pt arrived to lab analyst 2 at 15:50 michelle 03:50 PM Timothy Bridges RN Position: Monitor Time in: 15:50 michelle 03:50 PM Rafa Langston (R) Position: Scrub [facility] Bernie Sevilla RN Position: Repair Servicer Time in: 15:50 [facility] 03:50 PM Patient charges- Angio tray pack, Navilyst 3mm J, Pulse Oximetry and ACIST tubing and transducer [facility] 03:51 PM Hair removed from procedure site in procedure lab using clippers. Bilateral groin prepped with Chloraprep by Rafa Langston (R), then patient was draped. Skin intact. [facility] :51 PM Physician arrived 15:51 [facility] :51 PM Meet and greet completed [facility] :51 PM Sign in performed according to hospital policy. Informed consent was obtained. [facility] :51 PM Procedure start 15:51 [facility] :51 PM Time: 15:51 Patient comfortable and pain free: Yes [facility] 51 PM Time: 15:51LOC: 5 = Fully awake and oriented or at pre-proc level [facility] :51 PM Time: 15:51 Oxygen on at 2 L/min per nasal cannula by Bernie Sevilla RN [facility] 03:53 PM Vitals capture started with the following parameters, Patient=Adult, Interval=5 min, Initial Huunabrl=718 mmHg, Deflation Rate=5 mmHg, Cuff placed on Right Arm 03:53 PM CathStat 03:56 PM HR=87 bpm, OIKX=420/85 mmhg, AjE1=307.0 %, Resp=9 B/min, Comment=nsr 03:57 PM Time: 15:57 Versed 1 mg Intravenous Given by Bernie Sevilla RNgrant 03:57 PM Time: 15:57 Fentanyl 50 mcg Intravenous Given by Bernie Sevilla RN [facility] 03:59 PM Time out was performed according to hospital policy. Conscious sedation and anesthesia was achieved (see medication log with in this report above) [facility] 03[facility]59 PM Pressure channel 1 zero failed. 03:59 PM Pressure channel 1 zeroed. 03:59 PM HR=84 bpm, YDTG=983/91 mmhg, OdQ9=800.0 %, Resp=18 B/min, Comment=nsr 04:00 PM Time: 16:00 10 ml Lidocaine 2% to right groin Subcutaneous Given by MD michelle Hemphill 04:00 PM ASA Class CLASS II- Mild systemic disease (i.e. well-controlled diabetes, hypertension, asthma, cigarette smoking) [email or web address] 04:03 PM Time: 16:03 Versed 0.5 mg Intravenous Given by Bernie Sevilla RN 04:03 PM Time: 16:03 Fentanyl 25 mcg Intravenous Given by Bernie Sevilla RN 04:03 PM Micro-Introducer Kit utilized for sheath placement [email or web address] 04:03 PM Access obtained by percutaneous puncture. 6Fr 10cm Terumo Nutley sheath placed in right Femoral artery. [id number] [facility] 04:04 PM Recorded Pressure: Ao, HR=82, Condition=Condition 1 (Aorta) Ao 160/86/120 04:04 PM HR=76 bpm, FRKV=686/83 mmhg, MaN4=422.0 %, Resp=14 B/min, Comment=nsr 04:04 PM 5Fr FR 4 catheter inserted over the wire DN [email or web address] 04:05 PM RCA angiography performed in multiple views. [email or web address] 04:05 PM SVG to the 1st OM angio performed in multiple views. [email or web address] 04:06 PM Time: 15:51 Patient comfortable and pain free: Yes [email or web address] 04:06 PM Time: 15:51LOC: 4 = Oriented but drowsy [email or web address] 04:07 PM Time: 16:06 Labetolol 10 mg Intravenous Given by Bernie Sevilla RN 04:07 PM Left JERMAINE to the LAD angio performed in multiple views. [email or web address] 04:08 PM Catheter removed [email or web address] 04:08 PM 5Fr FL 4 catheter inserted over the wire DN jcran 04:09 PM HR=76 bpm, JWAM=367/80 mmhg, SpO2=99.0 %, Resp=21 B/min, Comment=nsr 04:10 PM LCA angiography performed in multiple views. [email or web address] 04:11 PM Recorded Pressure: Ao, HR=73, Condition=Condition 1 (Aorta) Ao 135/67/96 04:11 PM Catheter removed jcran 04:12 PM Coronary Dominance: Left [email or web address] 04:12 PM Recorded Pressure: LV, HR=74, Condition=Condition 1 (Left Ventricle) LV 160/9/14 04:13 PM 5Fr Pigtail catheter inserted over the wire [facility] jcallihan 04:13 PM Catheter crossed the aortic valve and was selectively placed in the left ventricle. Pressures recorded on pullback for left heart catheterization. [email or web address] 04:13 PM Recorded Pressure: LV, Ao, HR=74, Condition=Condition 1 (Left Ventricle) LV 161/9/16, (Aorta) Ao 162/73/109 04:13 PM Pressures only, recorded. [email or web address] 04:14 PM Time: 16:14 Heparin 3500 units Intravenous Given by Bernie Sevilla RN jcran 04:15 PM Catheter removed [email or web address] 04:15 PM HR=74 bpm, QDOH=029/84 mmhg, SpO2=99.0 %, Resp=27 B/min, Comment=nsr 04:15 PM PCI Status Urgent [email or web address] 04:15 PM PCI lesion in Proximal Circumflex. Pre Stenosis: 70 Pre JUSTIN Flow: 3: Complete and Brisk Flow/Perfusion [email or web address] 04:15 PM 6Fr XB3.5 Cordis guide catheter was used to cannulate the PCI vessel successfully. reused? No jcallihan 04:15 PM Inflation device was opened. [email or web address] 04:16 PM .014 BMW Baker 190cm guide wire across target lesion- successful. reused? No jcallihan 04:16 PM Guide catheter removed intact. [email or web address] 04:16 PM 6Fr XB3.0 Cordis guide catheter was used to cannulate the PCI vessel successfully. reused? No [email or web address] 04:17 PM Time: 16:16 Aggrastat Bolus: 42 ml Intravenous Given by Bernie Sevilla RN Bates pump [email or web address] 04:17 PM Time: 16:17 Aggrastat 12.5mg/250ml 15 ml/hr Intravenous Given by Bernie Sevilla RN Bates pump [email or web address] 04:18 PM Recorded Pressure: Ao, HR=73, Condition=Condition 1 (Aorta) Ao 160/69/105 04:19 PM HR=73 bpm, IOLA=360/77 mmhg, SpO2=99.0 %, Resp=20 B/min 04:19 PM 2.0 mm x 12 mm Emerge Monorail balloon across target lesion- successful. reused? No [email or web address] 04:20 PM Balloon inflated @ 6 kerri for 7 seconds [email or web address] 04:21 PM Balloon catheter removed intact. [email or web address] 04:21 PM Time: 16:06LOC: 4 = Oriented but drowsy [email or web address] 04:22 PM 3.0mm x 20mm Synergy drug-eluting stent across target lesion- successful Lot #[id number] [email or web address] 04:22 PM Stent deployed @ 9 kerri for 8 seconds [email or web address] 04:22 PM Time: 16:22 Labetolol 5 mg Intravenous Given by Bernie Sevilla RN [email or web address] 04:22 PM Stent balloon reinflated @ 16 kerri for 10 seconds [email or web address] 04:24 PM Stent delivery system removed intact. [email or web address] 04:24 PM Time: 16:24 Ancef 1 gram Intravenous Given by Bernie Sevilla RN [email or web address] 04:24 PM HR=74 bpm, UGJZ=404/83 mmhg, SpO2=99.0 %, Resp=23 B/min 04:25 PM Guide catheter removed intact. [email or web address] 04:25 PM Guide wire removed intact. [email or web address] 04:25 PM Procedure completed at 16:25 11/10/2018 [email or web address] 04:25 PM Did you address JUSTIN flow and Dominance? Yes [email or web address] 04:25 PM Sign out completed: Radiation Dose 991.95 mGy, 9223.50 cGy/cm2 Fluoro Time: 7.7 Isovue 370 - 200ml contrast 126 ml given by Hannah Lee MD. Complications: None. 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 Cardiac Rehab Consult needed: YesConfirmed administered medications: Yes [email or web address] 04:26 PM Isovue 370 - 200ml,2 Bottle(s) used. [email or web address] 04:26 PM Arterial sheath pulled, Angio-seal closure device used and was Successful [id number] S/N. [email or web address] 04:26 PM Estimated Blood Loss: minimal [email or web address] 04:26 PM Post ECG NSR [email or web address] 04:26 PM Post Blood Pressure 162/83 jcallihan 04:26 PM 16:26 Post Pulses Bilateral DP 1+ [email or web address] 04:28 PM Information taught Cardiac Cath, PCI, and Angioseal jcallihan 04:28 PM Education needs Procedure, Plan of Care, and Responsibilities of Patient in Care [email or web address] 04:28 PM Learning barriers :None [email or web address] 04:28 PM Education Methods Verbal [email or web address] 04:28 PM Education evaluation Able to repeat information [email or web address] 04:28 PM Site status No bleeding/hematoma - Rt Groin as reported by Rafa Langston RT (R) at 16:28 [email or web address] 04:28 PM Opsite applied jcallihan 04:29 PM Plavix, Effient or Brilinta given Yes [email or web address] 04:29 PM Family placed in consult room. [email or web address] 04:29 PM Complications: None [email or web address] 04:29 PM HR=74 bpm, VQPE=042/84 mmhg, SpO2=99.0 %, Resp=16 B/min 04:31 PM Time: 16:31 Plavix 600 mg Orally Given by Bernie Sevilla RN [email or web address] 04:33 PM Report given to RN Pt taken to Room #43. 16:33 [email or web address] 04:34 PM Patient out of room: 16:34 [email or web address] 04:35 PM Lesion found in Mid RCA. Pre Stenosis: 25 Pre JUSTIN Flow: [email or web address] 04:35 PM Lesion found in Mid LAD. Pre Stenosis: 100 Pre JUSTIN Flow: [email or web address] 04:36 PM Time: 16:21LOC: 4 = Oriented but drowsy [email or web address] 04:37 PM Mid/Distal Left Anterior Descending Coronary Artery and diagonal branches with 100% stenosis. If graft is supplying this area, 0 % stenosis [email or web address] 04:38 PM Circumflex, Obtuse Marginal, Left Posterior Descending, and Left Posterolateral Coronary Arteries with 70 % stenosis. If graft is supplying this area, 0 % stenosis jcallihan 04:38 PM Right Coronary, Right Posterior Descending Arteries with Right Posterolateral and Acute Marginal branches with 25 % stenosis. If graft is supplying this area, 0 % stenosis [email or web address] Complications Complication None None Hemodynamics Pressures Site Systolic/A Wave Diastolic/V Wave Mean AO 160 86 120 AO 135 67 96 LV 160 9 14 LV 161 9 16 AO 162 73 109 AO 160 69 105 Post Procedure Information Blood Pressure: 162/83 mmHg Rhythm: NSR Post procedural instructions were given Closure Device Time Device Success/Fail 11/10/2018 4:25:00 PM Angio-Seal VIP Successful Site Checks Time Location Status Staff Sheath In? Note 04:28 PM Rt Groin No bleeding/hematoma Rafa Langston RT (R) Pulses Time Site Pre-Procedure Post-Procedure Note Bilateral radial 2+ Bilateral DP 2+ 4:26:00 PM Bilateral DP 1+ Updated by Timothy Bridges RN on 11/12/2018 12:05:00 PM electronically signed on 11/12/2018 12:05:28 PM with status of Final
== END 2018-11-11 13:55 | disposition home or self-care (01) ==
LOC: EMEROOARM 12:36 → 3BNU 12:36
PROVIDERS: ADMIT Student in an Organized Health Care Education/Training Program; ATTEND Student in an Organized Health Care Education/Training Program

== ENCOUNTER 2019-10-08 11:06 | Observation (INO) ==
[2019-10-08 12:11] LABS: Basophils # 0.1 K/mcL (0.0-0.2); Basophils % 0.8 %; Eosinophils # 0.2 K/mcL (0.0-0.6); Eosinophils % 3.2 %; Hematocrit 39.2 % (35.3-44.9); Hemoglobin 12.3 g/dL (11.5-15.4); Immature Granulocytes % 0.3 % (0-4); Lymphocytes # 1.6 K/mcL (0.6-4.6); Lymphocytes % 24.8 %; Mean Corpuscular HGB Conc 31.4 g/dL (31.6-35.5); Mean Corpuscular Hemoglobin 27.3 pg (28.0-33.3); Mean Corpuscular Volume 87.1 fL (83.0-100.0); Mean Platelet Volume 12.9 fL (9.4-12.4); Monocytes # 0.4 K/mcL (0.0-1.3); Monocytes % 5.7 %; Neutrophils # 4.1 K/mcL (1.6-8.9); Platelet Count 143 K/mcL (140-400); Red Cell Distribution Width 14.3 % (11.5-14.5); Segmented Neutrophils % 65.2 %; White Blood Count 6.3 K/mcL (4.3-11.1)
[2019-10-08 12:28] LABS: INR 1.1; Prothrombin Time 12.9 Seconds (9.4-12.1)
[2019-10-08 12:41] LABS: BUN/Creatinine Ratio 16 (6-26); Blood Urea Nitrogen 12 mg/dL (8-23); Calcium 9.6 mg/dL (8.6-10.3); Carbon Dioxide 25 mEq/L (23-29); Chloride 104 mEq/L (98-107); Glucose 112 mg/dL (70-105); Osmolality,Calculated 293 (280-300); Potassium 3.8 mEq/L (3.5-5.1); Sodium 141 mEq/L (136-145); Troponin I 0.03 ng/mL (< 0.04); eGFR For African Americans > 60 (> 60); eGFR For Non-African Americans > 60 (> 60)
[2019-10-08] MEDS: Nitroglycerin 0.4 MG TAB.SUBL SL SCH ×3 (13:42→20:58)
[2019-10-08 13:55] LABS: Bilirubin,Urine Negative (Negative); Blood,Urine Large (Negative); Clarity,Urine Cloudy (Clear); Color,Urine Yellow (Yellow); Glucose,Urine (UA) Normal (Normal); Ketones,Urine Negative (Negative); Leukocyte Esterase,Urine Large (Negative); Nitrite,Urine Positive (Negative); PH,Urine 6.5 pH Units (5.0-8.0); Protein,Urine Trace mg/dL (Neg-Trace); Specific Gravity,Urine 1.016 (1.010-1.025); Urobilinogen,Urine Normal (Normal)
[2019-10-08 13:56] LABS: Bacteria,Urine Many per hpf (None-Few); Hyaline Casts,Urine None Seen per lpf (None-Few); RBC,Urine TNTC per hpf (0-3); Squamous Epithelial Cell,Urine Many per lpf (None-Few); WBC,Urine TNTC per hpf (0-3)
[2019-10-08] MEDS ORDERED: Ibuprofen 400 MG TABLET PO PRN (14:39)
[2019-10-08] MEDS ORDERED: Ondansetron ODT 4 MG TAB.RAPDIS SL PRN (14:39)
[2019-10-08] MEDS ORDERED: Naloxone 0.4 MG/ML INJ IVP PRN (14:39)
[2019-10-08] MEDS ORDERED: Acetaminophen 325 MG TABLET PO PRN (14:39)
[2019-10-08] MEDS ORDERED: Nitroglycerin 0.4 MG TAB.SUBL SL PRN (14:46)
[2019-10-08] MEDS ORDERED: *HR* LORazepam 1 MG TABLET PO ONE (15:23)
[2019-10-08] MEDS: Isosorbide MONOnitrate (24 HR) 30 MG TAB.ER.24H PO SCH (18:31)
[2019-10-08] MEDS: Mag Hydrox/Al Hydrox/Simeth 30 ML UDC PO SCH (18:31)
[2019-10-08] MEDS: *HR* Heparin 5,000 UNIT/ML VIAL SQ SCH (18:31)
[2019-10-08] MEDS ORDERED: *HR* Labetalol 20 MG/4 ML SYRINGE IVP ONE (22:17)
[2019-10-09] MEDS: Mag Hydrox/Al Hydrox/Simeth 30 ML UDC PO SCH ×2 (00:53→05:18)
[2019-10-09 03:40] LABS: Basophils # 0.1 K/mcL (0.0-0.2); Basophils % 0.7 %; Eosinophils # 0.2 K/mcL (0.0-0.6); Eosinophils % 2.9 %; Hematocrit 37.3 % (35.3-44.9); Hemoglobin 12.3 g/dL (11.5-15.4); Lymphocytes # 2.1 K/mcL (0.6-4.6); Lymphocytes % 30.4 %; Mean Corpuscular Hemoglobin 27.2 pg (28.0-33.3); Mean Corpuscular Volume 82.3 fL (83.0-100.0); Mean Platelet Volume 12.8 fL (9.4-12.4); Monocytes # 0.6 K/mcL (0.0-1.3); Monocytes % 7.9 %; Neutrophils # 4.1 K/mcL (1.6-8.9); Platelet Count 152 K/mcL (140-400); Red Blood Count 4.53 M/mcL (3.82-4.97); Red Cell Distribution Width 14.4 % (11.5-14.5); Segmented Neutrophils % 58.1 %
[2019-10-09 03:47] LABS: BUN/Creatinine Ratio 17 (6-26); Blood Urea Nitrogen 14 mg/dL (8-23); Calcium 9.2 mg/dL (8.6-10.3); Carbon Dioxide 27 mEq/L (23-29); Chloride 107 mEq/L (98-107); Glucose 166 mg/dL (70-105); Osmolality,Calculated 292 (280-300); Potassium 3.4 mEq/L (3.5-5.1); Sodium 139 mEq/L (136-145); eGFR For African Americans > 60 (> 60); eGFR For Non-African Americans > 60 (> 60)
[2019-10-09] MEDS: *HR* Heparin 5,000 UNIT/ML VIAL SQ SCH (05:18)
[2019-10-09 07:04] VITALS: BP 136/80
[2019-10-09] MEDS: Isosorbide MONOnitrate (24 HR) 30 MG TAB.ER.24H PO SCH (08:22)
[2019-10-09] MEDS ORDERED: Metoprolol XL (24 HR) Succ 50 MG TAB.ER.24H PO SCH (09:00)
[2019-10-09] MEDS ORDERED: FLU Vac QV 19-20 (6Month+)/PF 0.5 ML SYRINGE IM ONE (10:06)
== END 2019-10-09 11:17 | disposition home or self-care (01) ==
LOC: SUATTDRO → 3BNU 11:06 → EMEROOARM 11:06 → SUATTDRO 20:36 → 3BNU 21:21
PROVIDERS: ADMIT Internal Medicine; ATTEND Internal Medicine

== ENCOUNTER 2022-01-21 01:16 | Observation (INO) ==
[2022-01-21] MEDS ORDERED: Isovue-370 500 ML BOTTLE IVP ONE (01:42)
[2022-01-21 02:09] LABS: Basophils % 0.5 %; Eosinophils # 0.1 K/mcL (0.0-0.6); Eosinophils % 1.7 %; Hematocrit 43.4 % (35.3-44.9); Hemoglobin 13.9 g/dL (11.5-15.4); Immature Granulocytes % 0.2 % (0-4); Immature Platelets 15.6 % (1.1-6.1); Lymphocytes # 2.2 K/mcL (0.6-4.6); Lymphocytes % 26.3 %; Mean Corpuscular Hemoglobin 28.3 pg (28.0-33.3); Mean Corpuscular Volume 88.4 fL (83.0-100.0); Mean Platelet Volume 13.3 fL (9.4-12.4); Monocytes # 0.8 K/mcL (0.0-1.3); Monocytes % 9.7 %; Neutrophils # 5.1 K/mcL (1.6-8.9); Platelet Count 132 K/mcL (140-400); Red Blood Count 4.91 M/mcL (3.82-4.97); Red Cell Distribution Width 13.9 % (11.5-14.5); Segmented Neutrophils % 61.6 %; White Blood Count 8.2 K/mcL (4.3-11.1)
[2022-01-21 02:27] LABS: Platelet Estimate Normal (Normal)
[2022-01-21 03:09] LABS: Bacteria,Urine Few per hpf (None-Few); Bilirubin,Urine Negative (Negative); Blood,Urine Negative (Negative); Clarity,Urine Turbid (Clear); Color,Urine Yellow (Yellow); Glucose,Urine (UA) Normal (Normal); Hyaline Casts,Urine Few per lpf (None Seen); Ketones,Urine Negative (Negative); Leukocyte Esterase,Urine Large (Negative); Mucus,Urine Few per lpf (None-Few); Nitrite,Urine Positive (Negative); PH,Urine 6.5 pH Units (5.0-8.0); Protein,Urine Trace mg/dL (Neg-Trace); Specific Gravity,Urine 1.024 (1.010-1.025); Squamous Epithelial Cell,Urine Few per hpf (None-Few); Urobilinogen,Urine Normal (Normal); WBC,Urine TNTC per hpf (0-3)
[2022-01-21] MEDS ORDERED: cefTRIAXone 1,000 MG in Water for inj. (sterile) 10 ML IVP ONE (03:40)
[2022-01-21 03:41] LABS: Albumin 3.5 g/dL (3.5-5.7); Bilirubin,Direct 0.2 mg/dL (0.0-0.2); Bilirubin,Indirect 0.5 mg/dL (0.0-1.0); Bilirubin,Total 0.7 mg/dL (0.3-1.0); Calcium 10.9 mg/dL (8.6-10.3)
[2022-01-21 04:00] LABS: Albumin/Globulin Ratio 0.8 (1.1-2.2); Globulin 4.3 g/dL (2.4-3.5); Total Protein 7.8 g/dL (6.4-8.9)
[2022-01-21 04:42] LABS: Troponin I 0.06 ng/mL (< 0.04)
[2022-01-21] MEDS ORDERED: Naloxone 0.4 MG/ML INJ IVP PRN (05:32)
[2022-01-21] MEDS ORDERED: *HR* Dextrose 50 % in Water (Syg) 50 ML SYRINGE IVP PRN (05:37)
[2022-01-21] MEDS ORDERED: Dextrose 4 GM Chewable Tablets PO PRN ×2 (05:37)
[2022-01-21] MEDS ORDERED: D5% in Water 1,000 ML IVC PRN (05:37)
[2022-01-21 05:59] LABS: Estimated Average Glucose 186 mg/dl; Hemoglobin A1C 8.1 %
[2022-01-21] MEDS ORDERED: Perflutren Lipid Microsphere 1.3 ML in 0.9 % Sodium Chloride 8.7 ML IVP PRN (07:06)
[2022-01-21] MEDS ORDERED: Metoprolol XL (24 HR) Succ 50 MG TAB.ER.24H PO SCH (08:15)
[2022-01-21] MEDS ORDERED: Isosorbide MONOnitrate (24 HR) 30 MG TAB.ER.24H PO SCH (10:00)
[2022-01-21] MEDS: 0.9 % Sodium Chloride 1,000 ML IVC SCH ×2 (10:19→21:36)
[2022-01-21] MEDS: Insulin LISPRO 300 UNITS/3 ML VIAL SUBQ SCH ×3 (12:18→18:24)
[2022-01-21] MEDS: *HR* Heparin 5,000 UNIT/ML VIAL SQ SCH ×2 (15:25→21:16)
[2022-01-21] MEDS: carvediloL 6.25 MG TABLET PO SCH (16:18)
[2022-01-21] MEDS ORDERED: Isosorbide MONOnitrate (24 HR) 60 MG TAB.ER.24H PO SCH (21:00)
[2022-01-22] MEDS: Insulin LISPRO 300 UNITS/3 ML VIAL SUBQ SCH ×2 (00:09→05:43)
[2022-01-22 02:39] VITALS: O2SAT 96
[2022-01-22 03:06] LABS: Basophils % 0.6 %; Eosinophils # 0.2 K/mcL (0.0-0.6); Eosinophils % 2.3 %; Hematocrit 37.4 % (35.3-44.9); Immature Granulocytes % 0.3 % (0-4); Lymphocytes # 2.2 K/mcL (0.6-4.6); Lymphocytes % 33.6 %; Mean Corpuscular HGB Conc 31.8 g/dL (31.6-35.5); Mean Corpuscular Hemoglobin 28.5 pg (28.0-33.3); Mean Corpuscular Volume 89.7 fL (83.0-100.0); Mean Platelet Volume 12.6 fL (9.4-12.4); Monocytes # 0.6 K/mcL (0.0-1.3); Monocytes % 8.9 %; Neutrophils # 3.5 K/mcL (1.6-8.9); Platelet Count 127 K/mcL (140-400); Red Blood Count 4.17 M/mcL (3.82-4.97); Red Cell Distribution Width 13.8 % (11.5-14.5); Segmented Neutrophils % 54.3 %; White Blood Count 6.5 K/mcL (4.3-11.1)
[2022-01-22 03:11] LABS: Hemoglobin 11.9 g/dL (11.5-15.4)
[2022-01-22 03:15] LABS: BUN/Creatinine Ratio 31 (6-26); Blood Urea Nitrogen 27 mg/dL (8-23); Calcium 9.6 mg/dL (8.6-10.3); Carbon Dioxide 26 mEq/L (23-29); Chloride 103 mEq/L (98-107); Glucose 167 mg/dL (70-105); Magnesium 1.7 mg/dL (1.6-2.6); Osmolality,Calculated 291 (280-300); Phosphorous 2.8 mg/dL (2.7-4.5); Potassium 4.2 mEq/L (3.5-5.1); Sodium 136 mEq/L (136-145); eGFR For African Americans > 60 (> 60); eGFR For Non-African Americans > 60 (> 60)
[2022-01-22] MEDS: *HR* Heparin 5,000 UNIT/ML VIAL SQ SCH (05:42)
[2022-01-22 06:48] VITALS: BP 135/81; PULSE 70; TEMP 97.7
[2022-01-22] MEDS: carvediloL 6.25 MG TABLET PO SCH (08:32)
[2022-01-22] MEDS ORDERED: Isosorbide MONOnitrate (24 HR) 60 MG TAB.ER.24H PO SCH (09:00)
== END 2022-01-22 13:19 | disposition home or self-care (01) ==
LOC: EMEROOARM 01:16 → 3BNU 01:16 → SUATTDRO 05:16 → 3BNU 05:40
PROVIDERS: ADMIT Family Medicine; ATTEND Registered Nurse